=== PATIENT | male | born 1985 | race Caucasian/White ===

== ENCOUNTER 2019-08-02 11:00 | Emergency (ER) | payer SELFPAY ==
[~2019-08-02] VITALS: Ht 193 cm; Wt 97.7 kg
--- NOTE | 2019-08-02 11:44 | NUR ---
Security has allowed the pt 1 long distance phone call, which he has used.
[2019-08-02 13:01] VITALS: BP 159/98
[2019-08-02] MEDS ORDERED: mupirocin 2% ointment 22GM TP STA ×2 (13:30→13:41)
[2019-08-02] MEDS ORDERED: mupirocin 2% nasal ointment 1gm UD NS STA (13:39)
[2019-08-02] MEDS ORDERED: CEPH500C5 PO (13:47)
--- NOTE | 2019-08-02 14:19 | NUR ---
Wound washed, antibacterial ointment applied, and dressed.
== END 2019-08-02 14:15 | disposition home or self-care (01) ==
LOC: ER 11:01
DX: L03.317 Cellulitis of buttock (principal); F15.90 Other stimulant use, unspecified, uncomplicated; Z79.2 Long term (current) use of antibiotics
CPT/HCPCS: 99283